=== PATIENT | female | born 1935 | race Caucasian/White ===

== ENCOUNTER 2016-08-21 14:25 | Outpatient (CLI) | payer MEDICARE, OTHER ==
--- NOTE | 2016-08-22 07:52 | RAD ---
RIGHT FOOT THREE VIEWS: 08/21/16 HISTORY: Fracture. Right foot pain. FINDINGS: Lisfranc joint alignment is anatomic. Prominent osteophytosis is present throughout the foot. Hallux valgus and bunion deformity are present. Nondisplaced fracture involving the neck of the second metatarsal is present with surrounding callus formation and periosteal reaction. Nondisplaced oblique fractures involve the medial bases of the p roximal phalanges of the big toe and fifth toe with 0.1 mm distraction of each of these fractures. N ondisplaced comminuted, somewhat impacted fracture also involves the neck of the proximal phalanx of the right little toe. Subtle erosions involve the medial aspect of the heads of the fourth and fifth metatarsals. IMPRESSION: 1. Healing distal second metatarsal fracture. 2. More acute fractures involving the proximal phalanges of the right big toe and fifth toe, as detailed above. 3. Erosion involving the fourth and fifth metatarsal heads suggest possibility of inflammatory arthritis such as rheumatoid. Correlation with clinical findings is required. 4. Hallux valgus and bunion deformity. POS: GLORIA
== END 2016-08-21 14:26 | disposition home or self-care (01) ==
LOC: NAV RAD 14:25
PROVIDERS: ATTEND Family Medicine
DX: S92.321D Displaced fracture of second metatarsal bone, right foot, subsequent encounter for fracture with routine healing (principal)

== ENCOUNTER 2016-10-22 10:55 | Outpatient (CLI) | payer MEDICARE, OTHER ==
[2016-10-22 11:32] LABS: ALT (SGPT) Less than 6 U/L (8-55); AST (SGOT) 11 U/L (5-34); Albumin 2.8 g/dL (3.4-4.8); Alkaline Phosphatase 70 U/L (40-150); Anion Gap 14 mmol/L (10-20); BUN (Urea Nitrogen) 23 mg/dL (9.8-20.1); Bilirubin, Total 0.3 mg/dL (0.2-1.2); Calc. Creatinine Clearance 0 mL/min (70-130); Calcium 8.2 mg/dL (7.8-10.44); Carbon Dioxide 22 mmol/L (23-31); Cardiac Risk 3.5 (Less than 4.5); Chloride 105 mmol/L (98-107); Cholesterol 164 mg/dl (< 200 Desired); Estimated GFR-MDRD 77; Globulin 2.6 g/dL (2.4-3.5); Glucose 106 mg/dL (83-110); HDL Cholesterol 47 mg/dL (>60 Neg Risk); LDL Cholesterol, Calculated 97 mg/dL; Protein, Total 5.4 g/dL (6.0-8.3); Sodium 137 mmol/L (136-145); Triglycerides 102 mg/dL (Less than 150)
== END 2016-10-22 10:56 | disposition home or self-care (01) ==
LOC: NAV LAB 10:55
PROVIDERS: ATTEND Family Medicine
DX: E78.5 Hyperlipidemia, unspecified (principal); E03.9 Hypothyroidism, unspecified
CPT/HCPCS: 80053; 80061; 84443

== ENCOUNTER 2016-11-29 16:27 | Inpatient (IN) | payer OTHER, MEDICAID ==
[2016-11-29] MEDS ORDERED: Acetaminophen 650 MG Suppository PR PRN (18:18)
[2016-11-29] MEDS ORDERED: Bisacodyl 10 MG SUPP PR PRN (18:19)
[2016-11-29] MEDS ORDERED: Scopolamine 1.5 mg/72 hour Patch TOP PRN (18:19)
[2016-11-29] MEDS ORDERED: Ondansetron ODT 4 MG TAB PO PRN (18:20)
[2016-11-29] MEDS: Morphine Sulfate 2 MG/ML SYRINGE SLOW IVP PRN (19:53)
[2016-11-30] MEDS: Lorazepam 2 MG/ML VIAL SLOW IVP PRN ×2 (00:12→11:43)
[2016-11-30] MEDS: Morphine Sulfate 2 MG/ML SYRINGE SLOW IVP PRN ×2 (05:06→09:51)
[2016-11-30] MEDS: Morphine Sulfate 2 MG/ML SYRINGE SLOW IVP SCH ×3 (13:35→21:01)
[2016-11-30] MEDS: Lorazepam 2 MG/ML VIAL SLOW IVP SCH ×3 (15:34→23:00)
[2016-12-01] MEDS: Morphine Sulfate 2 MG/ML SYRINGE SLOW IVP SCH ×4 (01:09→13:15)
[2016-12-01] MEDS: Lorazepam 2 MG/ML VIAL SLOW IVP SCH ×8 (03:52→22:27)
[2016-12-01] MEDS: Lorazepam 2 MG/ML VIAL SLOW IVP PRN (08:40)
[2016-12-01] MEDS: Morphine Sulfate 2 MG/ML SYRINGE SLOW IVP PRN (11:21)
[2016-12-01 13:39] VITALS: BMI 13.8
[2016-12-01] MEDS ORDERED: Lorazepam 2 MG/ML VIAL SLOW IVP PRN (15:16)
[2016-12-01] MEDS ORDERED: Morphine Sulfate 2 MG/ML SYRINGE SLOW IVP PRN (15:16)
[2016-12-01] MEDS ORDERED: Scopolamine 1.5 mg/72 hour Patch TOP PRN (15:17)
[2016-12-01] MEDS ORDERED: Scopolamine 1.5 mg/72 hour Patch TOP SCH (15:45)
[2016-12-01] MEDS ORDERED: Lorazepam 2 MG/ML VIAL ONE ×2 (20:20→22:19)
[2016-12-02] MEDS ORDERED: Lorazepam 2 MG/ML VIAL ONE ×5 (00:10→08:32)
[2016-12-02] MEDS: Lorazepam 2 MG/ML VIAL SLOW IVP SCH ×7 (00:18→12:03)
[2016-12-02 07:46] VITALS: BP 101/55; TEMP 102.1
--- NOTE | 2016-12-23 07:32 | PQF ---
LOUIS CURRY C. HENRY MD [id number] CLINICAL DOCUMENTATION CLARIFICATION FORM: POST DISCHARGE PLEASE FAX RESPONSE BACK TO [phone] Addendum to original discharge summary date: ____ Late entry note date: __ DATE: 12/23/2016 ATTN: DR. DUONG The following CLINICAL INDICATORS - SIGNS / SYMPTOMS are present in the medical record: Oxygen saturations in the 70's to 80's On admission respirations 21, O2 sat 95% End stage respiratory failure Hypoxia RISKS: End stage COPD Respiratory failure with hypoxia Lung Cancer History of tobacco TREATMENTS: Oxygen Monitoring of oxygenation status Morphine Palliative care Please provide a response below if a more specific term indicating a diagnosis and/or acuity level for this condition can be identified. Please exercise your independent, professional judgment in responding to the clarification form. Clinical indicators are provided at the top of this form for your review. . For continuity of documentation, please document condition throughout progress notes and discharge summary. Thank you. [ ] Present on Admission (POA): [ ] Yes [ ] No [ ] Unable to determine [ ] Acute Respiratory Failure: [ ] with Hypoxia[ ] with Hypercapnia [ ] Acute On Chronic Respiratory Failure: [ ] with Hypoxia [ ] with Hypercapnia [ ] Acute Respiratory Failure caused by: (etiology) [ ] Acute Respiratory Insufficiency following [ ] trauma [ ] other [ ] Chronic Respiratory Failure only [ ] Does not apply to this patient [ ] Unable to determine [ ] Other diagnosis: _ Physician/Provider Signature Date Time (This form is maintained as a part of the permanent medical record) 2014 [employer] All Rights Reserved [email or web address]
== END 2016-12-02 09:33 | disposition expired | DRG 951 ==
LOC: NAV ACUTE 16:27
PROVIDERS: ADMIT Family Medicine; ATTEND Family Medicine
DX: Z51.5 Encounter for palliative care (principal); J96.91 Respiratory failure, unspecified with hypoxia; R64 Cachexia; J44.9 Chronic obstructive pulmonary disease, unspecified; C34.91 Malignant neoplasm of unspecified part of right bronchus or lung; M06.9 Rheumatoid arthritis, unspecified; M50.20 Other cervical disc displacement, unspecified cervical region; Z68.1 Body mass index [BMI] 19.9 or less, adult; Z87.891 Personal history of nicotine dependence; E03.9 Hypothyroidism, unspecified; M19.90 Unspecified osteoarthritis, unspecified site; M81.0 Age-related osteoporosis without current pathological fracture; E55.9 Vitamin D deficiency, unspecified; Z66 Do not resuscitate; Z88.5 Allergy status to narcotic agent
CPT/HCPCS: A4216; J2060; J2270; J7620